=== PATIENT | female | born 1990 | race Caucasian/White ===

== ENCOUNTER 2016-07-13 07:52 | Inpatient (IN) | payer OTHER ==
[~2016-07-13] VITALS: Ht 162.6 cm; Wt 104.3 kg
[~2016-07-13 07:52] MED LIST: Docusate Sodium PO; Ibuprofen PO; Oxycodone/Acetaminophen PO
[2016-07-13 08:56] LABS: Mean Corpuscular Hemoglobin 27.8 pg (27.0-35.0); Mean Corpuscular Volume 80.5 fL (81-100)
[2016-07-13] MEDS ORDERED: Carboprost 250 mCg/mL Inj IM PRN (11:30)
[2016-07-13] MEDS ORDERED: Oxytocin 10 Unit/mL Inj IM PRN (11:30)
[2016-07-13] MEDS ORDERED: Sodium Chloride LOK Flush 10 mL Syringe IVFLUSH PRN (11:30)
[2016-07-13] MEDS ORDERED: Methylergonovine 0.2 mg/mL Inj IM PRN (11:30)
[2016-07-13] MEDS ORDERED: Oxytocin 30 Units/500 mL LR 30 UNITS in IV Premix 1 EACH IV PRN ×2 (11:30→14:05)
[2016-07-13] MEDS ORDERED: Hemorrhage Kit, Post Partum XX ONE (11:30)
--- NOTE | 2016-07-13 13:14 | DRSVH ---
PROCEDURE: US OB FOLLOW UP PER FETUS LIMITED INDICATIONS: WEIGHT, MILTON OUTSIDE/PRIOR DATING DATA: Last menstrual period (LMP): 10/04/15. LMP-based estimated date of delivery (CHARLOTTE): 07/10/16. First dating scan (date and location): 12/07/15. Estimated date of delivery (CHARLOTTE) from first dating scan: 07/10/16. TECHNIQUE: Real-time scanning was performed of the fetus, with image documentation and biometric measurements. COMPARISON: [facility] Ul[facility]ound, US, US OB [facility]EEVAL [facility]COMP [facility]ATMY LTD, 05/25/2016, 7:58. FINDINGS: General: A single living intrauterine gestation is present. Presentation: Vertex Placenta: Placental position is anterior, without previa. [facility] Ul[facility]ound Procedure Report Summary Fetus Summary Estimated Gestational Age from first dating scan: 40 weeks, 3 days Estimated Gestational Age from present scan: 38 weeks, 1 day Estimated Weight (EFW): 4083 g EFW percentile rank: 80 % Heart Rate: 144 beats permitted Findings(Amniotic Sac) Amniotic Fluid Index: 0.20 cm Biometry BiometryGroup Biparietal Diameter (Mean): 9.44 cm Gestational Age (BPD): 38 weeks, 3 days Head Circumference (Mean): 33.57 cm Gestational Age (HC): 38 weeks, 3 days Abdominal Circumference (Mean): 38.30 cm Gestational Age (AC): Greater than 41 weeks. Femur Length (Mean): 7.34 cm Gestational Age (FL): 37 weeks, 4 days Pelvis and Uterus Cervix Length: Well-seen. Measurement variability in biometric dating: +/- 10 days from 12-20 weeks gestation, +/- 2 weeks from 20-30 weeks gestation, +/- 3 weeks at 30 weeks gestation or more. Other: Not applicable. IMPRESSION: Normal interval growth with estimated weight is 80th percentile. Oligohydramnios present with the MILTON measuring 2 cm. Doretha Ambriz RN given results by the plate roller 1030 hrs. 07/13/2016. Dictated by: Mariano Bowens RRA Interpreted: Anika Holloway MD on 07/13/2016 at 13:11 Transcribed by: CASSIE on 07/13/2016 at 13:14 Approved by: Anika Holloway MD, PhD on 07/13/2016 at 15:19
[2016-07-13] MEDS ORDERED: Lactated Ringer's 1,000 ML IV SCH ×2 (14:04→19:10)
[2016-07-13] MEDS ORDERED: Misoprostol 25 mCg/0.25 Tablet VAGINAL SCH (14:05)
[2016-07-13] MEDS ORDERED: Oxytocin 10 Unit/mL Inj ONE (14:14)
[2016-07-13] MEDS ORDERED: Propofol 10,000 mCg/mL 20 mL Inj ONE (14:14)
[2016-07-13] MEDS ORDERED: Esmolol 10,000 mCg/mL 10 mL Inj ONE (14:14)
[2016-07-13] MEDS ORDERED: MeTOProlol 1 mg/mL 5 mL Inj ONE (14:14)
[2016-07-13] MEDS ORDERED: Ondansetron 2 mg/mL 2 mL Inj ONE (14:14)
[2016-07-13] MEDS ORDERED: Phenylephrine/NS-PF 100 mCg/mL 5 mL Syringe IVPUSH ONE (14:14)
--- NOTE | 2016-07-13 14:22 | PCM.HPOB ---
Subjective Date of Service: July 13, 2016 Referring Provider: Admitting Physician: Noah Portillo MD Primary Care Physician: Noah Portillo MD Attending Physician: Peyton Aj MD Chief Complaint Oligohydramnios, labile blood pressures at 40+3 weeks GA History of Present History of Present Illness Patient is a very pleasant 26-year-old with an EDC of 07/10/2016 who has been followed throughout her by Dr. Noah Hercules. He is out of the office and in [place] for vacation currently. She was brought in today for a nonstress test but was noted to be mildly hypertensive initially with blood pressures ranging from 131/75-144/90 . heart rate baseline was in the 140s and there were some variable decelerations dropping down 20 beats and lasting 30- 45 seconds. heart rate variability was good. Patient also reported to nursing staff that she felt quite poorly over the weekend and had had at least one episode of lightheadedness. She has mild puffiness to the hands and the feet and denies any history of hypertension outside of . PIH labs were drawn and ultrasound was done which showed estimated weight of 4080 g and oligohydramnios with MILTON of 2 cm. Patient was admitted and consent for induction of labor was reviewed with her and signed. She is aware of the risks, benefits, and alternatives and would like to proceed with this. She has had induction with her a couple of her previous pregnancies and is familiar with this process. Labs were reviewed and hemoglobin was 10.8, hematocrit 31.3, platelet count 265. Her protein and creatinine ratio was normal at 0.1. ALT was 8 and AST 11. Serum uric acid was normal at 4.3. Creatinine was 0.43, and BUN was 8. Patient has not had PIH with any of her previous pregnancies. She does feel like this baby is bigger than her last one , and weight gain in the has been 59 pounds. She is O+, rubella immune, RPR was nonreactive. Hepatitis B surface antigen was negative, hepatitis C was negative, HIV was negative. Her diabetic screen at 31 weeks was 98. GC chlamydia was negative and GBS is negative. HSV types 1 and 2 were both negative. A1c was 5.2% and TSH was normal at 0.99. Quad screen was negative and Pap smear was normal. OB History: (5), Para, Term (3), (0), Living (3) Obstetrical Complications: None Past Medical History Obstetrical History: 1. Her first baby was born September 2007 at 41 weeks gestation following 20 hours of labor. She did have an epidural and had normal vaginal delivery of a baby girl born weighing 8 pounds and 14 ounces. Both mom and baby were healthy without any complications. " [place]" 2. Her second baby was born in May 2009 at 39 weeks gestation following 7 hours of labor. She had an epidural and normal vaginal delivery of a baby girl weighing 7 lbs. 9 oz. Both mom and baby are healthy with no complications. " Gracie" 3. Her third baby was born in November 2011 at 40-1/2 weeks gestational age with 5 hours of labor. She had an epidural and had spontaneous vaginal delivery of a live born male weighing 8 lbs. 14 oz. Both mom and baby are healthy with no complications." [place]" 4. Her fourth in January 2014 was a tubal and she had surgical removal of the left fallopian tube. 5. This is her fifth and current . Gynecologic History: She has not had any history of abnormal Pap smears or STDs. Medical History: She is generally in good health and has not ever been in the hospital apart from obstetrically related reasons. Surgical History: She had previous left fallopian tube removed January 2014 because of an ectopic . Hx Tobacco Use: No Hx Alcohol Use: No Hx Substance Use: No Past Family History Family History Family history is negative for any breast, colon, or ovarian cancers and there is no history of diabetes. Living Arrangement: with Family Genetic Screening/Counseling Genetic Screening/Counseling: Negative Baby father-had child w defect: No Review of Systems Constitutional: Y: Dizziness Eyes: Denies: Blurred Vision, Double Vision ENT: Denies: Dental Problems, Nasal Congestion, Nose Discharge, Throat Pain Cardiovascular: Denies: Chest Pain, Palpitations Respiratory: Denies: Cough Gastrointestinal: Denies: Abdominal Pain, Constipation, Diarrhea, Heartburn, Nausea, Vomiting Genitourinary: Denies: Dysuria Musculoskeletal: Denies: Redness, Swelling Skin/Breasts: Denies: Jaundice, Lesions Skin: Denies: Bruising Neurological: Denies: Change in Speech Psychologic: Reports: Anxious, Denies: Depression Hematologic: Denies: Adenopathy Medications Home medications Patient is only on vitamins and has no other regular medications Allergy Coded Allergies: No Known Allergies (Verified , 10/17/07) Exam Vital Signs 131/75, heart rate 83, temperature 36.7 Constitutional: Well-developed, Well-nourished HEENT: PERRLA, EOMI, Mucous Membr Moist/Percy Lungs: Clear to Auscultation, Normal Air Movement Heart: Regular Rate/Rhythm, Normal S1, Normal S2 Abdomen: Gravid, Normal bowel sounds, Soft, No tenderness, No hepatosplenomegaly Lymphatic: Normal: Neck Palpation of Nodes Extremities: Pulses Palpable x4, Warm, No Edema Neurological/Psychiatric: Alert, Oriented X3, Cooperative, No Acute Distress Neuro: Grossly Neurologically Intact Labs/Diagnostics Labs Blood type is O+, with no abnormal antibodies. Pap test was normal. Rubella is immune, RPR nonreactive, urine culture was negative, hep B surface antigen negative, HIV negative, hepatitis C was negative, HSV types 1 and 2 were both negative. GC chlamydia was negative. A1c 5.2%, and TSH 0.99. GTT was 98. GBS was negative. Maternal Blood Type: O Hx Rho(D) Immune Globulin: No Antibody Screen: negative Group B Strep Results: Negative Previous with GBS: No Rubella: Immune Lab History: Negative for: Hx Gonorrhea, Hx HIV, Hx Herpes, Hx Syphilis OB Intrapartum Assessment/Plan Assessment 26-year-old who has been cared for in her by Dr. Hercules with an EDC of 07/10/2016 who is presenting at 40 weeks +3 days with oligohydramnios and MILTON of 2 cm. Estimated weight is 9 pounds. Cervix is 1 cm dilated, fingertip os, vertex at -3 station and 50% effaced. Consent for induction of labor has been signed with the risks, benefits, and alternatives to this reviewed with patient and her spouse. She will start with Cytotec induction and proceed from there, depending on her response. heart rate is reactive with baseline in the 140s and good beat to beat variability. Membranes are intact and there is no bloody show. GBS is negative. Problems: (1) Post term over 40 weeks Status: Acute ICD Code: O48.0 (2) Oligohydramnios without rupture of membranes Qualifiers: Fetus number: single or unspecified fetus Trimester: third trimester Qualified Code: O41.03X0 - Oligohydramnios, third trimester, not applicable or unspecified Status: Acute ICD Code: O41.00X0 Pain Evaluation: Adequate Pain Control Peyton Aj MD July 13, 2016 14:22
[2016-07-13] MEDS ORDERED: fentaNYL-PF 50 mCg/mL 2 mL Inj ONE (17:55)
[2016-07-13] MEDS ORDERED: fentaNYL-PF 50 mCg/mL 2 mL Inj IVPUSH PRN ×2 (18:25→19:10)
[2016-07-13] MEDS ORDERED: Atropine 1 mg/10 mL (Code) Syringe IVPUSH PRN (19:10)
[2016-07-13] MEDS ORDERED: fentaNYL 2 mCg/mL-Bupiv 0.125% 100 ML EPIDURAL SCH (19:10)
[2016-07-13] MEDS ORDERED: Ondansetron 2 mg/mL 2 mL Inj IVPUSH PRN (19:10)
[2016-07-13] MEDS ORDERED: Lactated Ringer's 500 ML IV ONE (19:10)
[2016-07-13] MEDS ORDERED: EPHEDrine Sulfate 50 mg/mL Inj IVPUSH PRN (19:10)
--- NOTE | 2016-07-13 19:10 | PCM.HPANE ---
Patient Data Date of Service: July 13, 2016 Surgeon Admitting Provider:Noah Portillo MD Attending Provider:Noah Portillo MD Primary Care Physician:Noah Portillo MD Other Provider:Ron Martinez Anesthesia Reason for Visit Induction INDUCTION Ht/WT & BMI Height (Feet): 5 Weight (Kilograms): 104 Body Mass Index Allergies Coded Allergies: No Known Allergies (Verified , 10/17/07) Past Anesthesia History Anesthesia History: Positive for:: Anesthesia Reactions (prior epidurals were partially effective - endorsed numbness but c/o significant pain), Denies:: Fam Anesthesia Reaction, Fam Malignant Hypertherm, Malignant Hyperthermia Diabetes History Hx Diabetes?: No MRSA MRSA: No Medications Hypertension Medication: No Home Meds Incl Beta Lisbeth: No Active Scripts [Ibuprofen] (Motrin)600 MG TABLET No Conflict [id number] Mg PO Q6H PRN For Pain # 80 TABLET Prov:Carlos Alva MD 03/13/14 [Oxycodone/Acetaminophen] (Percocet 5-325)1 TAB TABLET No Conflict Check1-2 Tab PO Q4H PRN For Pain #80 TABLET Prov:Carlos Alva MD 03/13/14 [Docusate Sodium] (Colace)100 MG CAPSULE No Conflict [id number] Mg PO BID PRN For Constipation #60 CAPSULE Prov:Carlos Alva MD 03/13/14 History History of ENT Problems?: No HEENT History: Denies:: Abnormal Airway Cataracts Difficult Intubation Dysphagia Glaucoma Hearing Problem Sinus Problem TMJ Denture Type: None Teeth Condition: Within Normal Limits Hx of Heart Problems?: No Cardiovascular History: Denies:: Chest Pain Congestive Heart Failure Hypertension Hx of Respiratory Problem?: No Respiratory History: Denies:: Tuberculosis Hx Neurologic Problems?: No Neurological History: Denies:: CVA Seizures TIA Hx of GI Problems?: No Gastrointestinal History: Denies:: Gastroesphageal Reflux Hx of Problems?: No Female Hx: Positive for:: Currently Denies:: Endometriosis Pelvic Inflammatory Problems with Breasts? Hx Musculoskeletal Problems?: No Hx of Psycho/Social Problems?: Yes Psycho Social History: Positive for:: Anxiety Denies:: Suicide Attempt Hx Surgeries?: Yes (oral surgery 12 years ago, 3 vaginal births) Hx Any Other Health Problems?: No Other History: Positive for:: Hospitalization Denies:: Cancer Endocrine Disease Thyroid Disease History Blood Transfusions: Denies:: Blood Transfuse Reaction Blood Transfusions Hx Diabetes: No Hx Alcohol Use: NoHx Substance Use: No Smoking Status: Never Smoker Have You Smoked inLast 12 mo: Yes (stress smoker. ) Stop/Bang Treated for Sleep Apnea?: No Do You Have a CPAP Machine?: No S-Snoring: Do You Snore Loudly: No T-Tired: feel tired, fatigued: No O-Obsered: Observed not breath: No P-Blood Pressure: treated: No B- Body Mass Index > 35 kg/m2: Yes A- Age over 50: No N- Neck Large Circumference: No G- Gender Male: No ELISABET Risk Assessment: Low Risk, <3 Yes Risk Assessment Category Category 1A: Patient has history of documented sleep apnea, and HAS NOT received any narcotic, sedative or anesthesia administration during this stay. Category 1B: Patient has history of documented sleep apnea, and HAS received any narcotic , sedative or anesthesia administration during this stay Category 2: Patient has SUSPECTED Obstructive Sleep Apnea, and HAS received any narcotic , sedative or anesthesia administration during this stay. Category 3: Patient has SUSPECTED Obstructive Sleep Apnea and HAS NOT received narcotic, sedative or anesthesia administration during this stay. Category 4: Outpatient in Procedural Areas with known sleep apnea or who screen positive for High Risk via the STOP/BANG questionnaire. Exam Exam General Appearance: Alert, Oriented X3, Cooperative, No Acute Distress HEENT/AIRWAY: MP 2, Neck Movement (from), Mouth Opening (3), Other (tmd3) Lungs: Clear to Auscultation, Normal Air Movement Heart: Exam Unremarkable, Regular Rate/Rhythm, Normal S1, Normal S2, No Murmurs /Rubs/Gallops Meds/Labs/Diagnostics Admission Meds Current Medications Lactated Ringer's (Lr) 1,000 ml @ 125 mls/hr Q8H IV Last administered on 18:07; Start 07/13/16 at 14:04 Misoprostol (Cytotec) 25 mcg Q4H VAGINAL Last administered on 07/13/16 14:23; Start 07/13/16 at 14:05 Fentanyl Citrate (Sublimaze Inj) 100 mcg STK-MED ONCE .ROUTE Last administered on 07/13/16 18:01; Start 07/13/16 at 17:55; Stop 07/13/16 at 17:58; Status DC Labs Test 07/13/16 08:40 White Blood Count 7.3th/mm3 (3.8-10.1) Red Blood Count 3.89mil/mm3 (3.90-5.20) Hemoglobin 10.8g/dL (12.0-15.6) Hematocrit 31.3% (35.0-46.0) Mean Corpuscular Volume 80.5fL (81-100) Mean Corpuscular Hemoglobin 27.8pg (27.0-35.0) Mean Corpuscular Hemoglobin Concent 34.5% (32.0-37.0) Red Cell Distribution Width 14.3% (12.3-15.4) Platelet Count 265bil/L (150-400) Hematology Comments Urine Random Creatinine 136mg/dL (16-392) Urine Random Total Protein 13mg/dL (0-15) Urine Protein/Creatinine Ratio 0.10 (0-200) Blood Urea Nitrogen 8mg/dL (6-20) Creatinine 0.43mg/dL (0.57-1.00) Uric Acid 4.3mg/dL (2.6-7.2) Aspartate Amino Transf (AST/SGOT) 11U/L (0-50) Alanine Aminotransferase (ALT/SGPT) 8U/L (0-32) Plan Impression Patient chart reviewed, patient interviewed and anesthestic plan with risks, benefits, and alternatives discussed, and informed consent obtained. NPO per Anesth. Guidelines: No ASA Physical Status: ASA2 Mod Systemic Disease Anesthetic Plan: Epidural Bene/Risks/Altern/Consents: Yes HP Complete Prior to Induction: Yes Lebron Carranza MD July 13, 2016 19:10
[2016-07-13] MEDS: Lactated Ringer's 1,000 ML IV PRN ×2 (19:30→20:38)
[2016-07-14] MEDS ORDERED: Sodium Chloride LOK Flush 10 mL Syringe IVFLUSH SCH (00:30)
[2016-07-14] MEDS: Lactated Ringer's 1,000 ML IV PRN (00:50)
[2016-07-14] MEDS ORDERED: SODIUM CHLORIDE 0.9% IV ONE (01:30)
[2016-07-14] MEDS ORDERED: GENTAMICIN IV ONE (01:30)
[2016-07-14] MEDS ORDERED: Ampicillin Inj 2,000 MG in 0.9% Sodium Chloride 100 ML IV SCH (01:44)
[2016-07-14] MEDS ORDERED: Sodium Citrate-Citric Acid 15 mL Solution ONE (01:47)
[2016-07-14] MEDS ORDERED: Acetaminophen IV 1,000 MG in IV Premix 1 EACH IV ONE (01:50)
--- NOTE | 2016-07-14 01:57 | PCM.PNOBIP ---
Subjective Date of Service July 14, 2016 Delivery plan: Primary [facility] Delivery Visit History Patient had SROM at 1726 hrs on 07/13/2016 and was song every 1 to 2 minutes. She was quite uncomfortable over the next hour or so, and was checked and found to be 5 cm, 100% effaced and vertex at -2 station. She requested adn epidural and this was placed and has worked well for patient. She was checked one hour after the epidural and was 6 cm, but her cervix was starting to swell, especially anteriorly. Her position was changed multiple times, and IV fluids were given. She was 7 cm dilated just before 10pm, but her cervix was also noted to be much more swollen, and the baby's head is asynclitic and some caput was noted. Over the last 2 to 3 hours, the baby has developed deep variable decels ( lowest to 90, most to 100 to 110) and tachycardia, with baseline to the 175 to 180. Variability is still moderated, she has bloody show. Vaginal exam showed her cervix to still be 7.5 cm, and she is thickly swollen anteriorly , with asnyclitic vertex presentation. Maternal temp is 38 degrees. Maternal HR 94 to 114 range. Options reviewed with mom and her , and she would like to proceed with a primary c/section delivery. OB has also reviewed the strip, and she has been 7.5 cm dilated for 4 hours. ampicillin and gentamycin have been ordered and we will be going back for c/section for nonreassuring FHR and FTP in labor with a macrosomic and asynclitic head. Maternal Date/Time of ROM: 07/13/2016 17:26 hrs Pain Management: Epidural Gastrointestinal: No N/V Group B Strep Results: Negative Rubella: Immune Blood Type: O RH Type: Positive Labs Laboratory Tests 07/13/16 08:40: White Blood Count 7.3, Red Blood Count 3.89, Hemoglobin 10.8, Hematocrit 31.3, Mean Corpuscular Volume 80.5, Mean Corpuscular Hemoglobin 27.8, Mean Corpuscular Hemoglobin Concent 34.5, Red Cell Distribution Width 14.3, Platelet Count 265, Hematology Comments Exam Vital Signs Vital Signs Contraction frequency in minutes: MVUs: Vital Signs: VS reviewed, concerns are (maternal temp 38 degrees, maternla HR 92 to 114) Heart Tracings Heart Tones Baseline 170 to 180 bpm Heart Rate Variability: Moderate Heart Rate Accelleration: Present Heart Rate Deceleration: Present Heart Rate Category: II Tocometry/IUPC Contraction frequency in minutes: MVUs: Sterile Vaginal Exam Cervical Dilation: 7 cms Cervical Effacement: 100 % Station: -2 Exam Lungs: Clear to Auscultation, Normal Air Movement Heart: Regular Rate/Rhythm, Normal S1, Normal S2 General: Alert, Oriented X3, Cooperative OB Intrapartum Assessment/Plan Assessment 26 year old at 40 +4 weeks, with nonreassuring FHR , maternal temp 38 degrees, and FTP in labor past 7.5 cm x 4 hours. Plan for c/section. Problems: (1) Post term over 40 weeks Status: Acute ICD Code: O48.0 (2) Oligohydramnios without rupture of membranes Qualifiers: Fetus number: single or unspecified fetus Trimester: third trimester Qualified Code: O41.03X0 - Oligohydramnios, third trimester, not applicable or unspecified Status: Acute ICD Code: O41.00X0 (3) Non-reassuring heart rate or rhythm affecting management of fetus Status: Acute ICD Code: [id number] (4) Failure to progress in first stage of labor Status: Acute ICD Code: [id number] Intrapartum plan: Recommend delivery Pain Evaluation: Adequate Pain Control Intrapartum Antibiotics: Ampicillin, Gentamicin Peyton Aj MD July 14, 2016 01:57
[2016-07-14] MEDS ORDERED: Clindamycin Inj 900 MG in IV Premix 1 EACH IV STA (02:11)
[2016-07-14] MEDS ORDERED: MetoCLOpramide 5 mg/mL 2 mL Inj IVPUSH PRN (02:40)
[2016-07-14] MEDS ORDERED: Phenylephrine/NS-PF 100 mCg/mL 5 mL Syringe IVPUSH PRN (02:40)
[2016-07-14] MEDS ORDERED: fentaNYL-PF 50 mCg/mL 2 mL Inj IVPUSH PRN (02:40)
[2016-07-14] MEDS ORDERED: EPHEDrine Sulfate 50 mg/mL Inj IVPUSH PRN (02:40)
[2016-07-14] MEDS ORDERED: Ondansetron 2 mg/mL 2 mL Inj IVPUSH PRN (02:40)
[2016-07-14] MEDS ORDERED: Atropine 0.4 mg/mL Inj IV PRN (02:40)
[2016-07-14] MEDS ORDERED: Lactated Ringer's 1,000 ML IV SCH (04:23)
[2016-07-14] MEDS ORDERED: LANOlin HPA 7 Gm Ointment TOPICAL PRN (04:25)
[2016-07-14] MEDS ORDERED: Carboprost 250 mCg/mL Inj IM PRN (04:25)
[2016-07-14] MEDS ORDERED: Sodium Chloride LOK Flush 10 mL Syringe IVFLUSH PRN (04:25)
[2016-07-14] MEDS ORDERED: Methylergonovine 0.2 mg/mL Inj IM PRN (04:25)
[2016-07-14] MEDS ORDERED: Oxytocin 30 Units/500 mL LR 30 UNITS in IV Premix 1 EACH IV PRN (04:25)
[2016-07-14] MEDS ORDERED: Acetaminophen IV 1,000 MG in IV Premix 1 EACH IV PRN (04:25)
[2016-07-14] MEDS ORDERED: Oxytocin 10 Unit/mL Inj IM PRN (04:25)
[2016-07-14] MEDS ORDERED: diphenhydrAMINE 50 mg Capsule PO PRN (04:25)
[2016-07-14] MEDS ORDERED: Hemorrhage Kit, Post Partum XX ONE (04:25)
[2016-07-14] MEDS ORDERED: Clindamycin Inj 900 MG in IV Premix 1 EACH IV SCH (04:43)
[2016-07-14] MEDS ORDERED: Albumin 25% 50 GM in IV Premix 1 EACH IV ONE (04:45)
[2016-07-14] MEDS ORDERED: ALBUMIN IV STA ×2 (04:49→06:18)
[2016-07-14] MEDS ORDERED: 0.9% Sodium Chloride 250 ML IV SCH (04:50)
[2016-07-14 05:01] LABS: BASOPHILS % (AUTO) 0.1 % (0-3); EOSINOPHILS % (AUTO) 0 % (0-5); MONOCYTES % (AUTO) 9.4 % (4-12); Mean Corpuscular Volume 81.9 fL (81-100); NEUTROPHILS % (AUTO) 85.9 % (40-74); Platelet Count 273 bil/L (150-400)
[2016-07-14] MEDS ORDERED: diphenhydrAMINE 25 mg Capsule PO ONE (06:05)
--- NOTE | 2016-07-14 10:12 | OP ---
[address] [address] OPERATIVE REPORT PATIENT: STEVE MAURICE : 1990 MR#: [id number] ADMIT: 07/13/2016 JOB ID: [id number] DATE OF SURGERY: 07/14/2016 PREOPERATIVE DIAGNOSIS(ES): 1. Intrauterine at 40 weeks and four days. 2. Oligohydramnios. 3. Nonreassuring heart tones remote from delivery. 4. Arrest of dilatation. 5. Chorioamnionitis. POSTOPERATIVE DIAGNOSIS(ES): 1. Intrauterine at 40 weeks and four days. 2. Oligohydramnios. 3. Nonreassuring heart tones remote from delivery. 4. Arrest of dilatation. 5. Chorioamnionitis. 6. Status post primary section. 7. hemorrhage. SURGEON: Lima Rodríguez M.D. ATTENDANT LODGING FACILITIES: Peyton Aj M.D. [employer] Superintendent was required for retraction, exposure and safe delivery of the infant and safe completion of the procedure. PROCEDURE: Primary section via Pfannenstiel skin incision and low transverse uterine incision. COMPLICATIONS: hemorrhage. BLOOD PRODUCT ADMINISTRATION: Two units of packed red blood cells being administered in recovery. ESTIMATED BLOOD LOSS: 1500 mL. IV FLUIDS: 2000 mL. Vasopressor was given and albumin was given postop in the recovery. ANESTHESIA: Epidural. SPECIMENS REMOVED: Placenta was sent to Pathology and cultures collected. FINDINGS: Male infant delivered in cephalic presentation with no nuchal cord. Apgars 3 at one minute, 7 at five minutes and 9 at 10 minutes. Weight 3841 g, equivalent to 8 pounds 7 ounces. Thick meconium stained amniotic fluid. Normal uterus, tubes and ovaries beside the serosa of the uterus noted to be edematous. Some omentum noted to be adherent to the anterior lower parietal peritoneum. INDICATION: This is a 26-year-old 5, para 3-0-1-3 was admitted at 40 weeks and 3 days gestation with oligohydramnios and a borderline blood pressure. The patient is Dr. Portillo's patient but Dr. Aj was distance education director provider and she admitted her for induction of labor that was started with Cytotec as cervix was 1 cm dilated, finger tip and -3 station and 50% effaced. The patient had spontaneous rupture of membranes at 1526 on July 13, 2016 and she continued to contract every 1-2 minutes. On re-evaluation 1 hour later, she was found to be 5 cm dilated, 100% effaced and -2 station. The patient received epidural and progressed in dilatation to 7.5 dilatation at about 2200 hours. Then the cervix remained at 7.5 cm for the following four hours. tachycardia was noted with heart tones baseline was up to 170 and then to 180s. Variable decelerations were noted down to the 90s and 110. Intrauterine resuscitation was performed. IV hydration, oxygen, position change with persistent heart tones, tachycardia and viable heart tone decelerations. For induction, the patient received only one dose of misoprostol. Then she started to contract regularly. When contractions spaced out. Pitocin was started then was turned off secondary to non tolerance with heart tones as described above. Maternal fever was noted with temperature of 38, maternal white cells count was 24. Ampicillin and gentamicin were started. The cervix remained at 7.5 cm with the current heart tones being in category 2, not responding to intrauterine resuscitation. The patient was offered a primary section as the delivery was remote with no significant cervical record changer the past four hours and chorioamnionitis was treated with ampicillin and gentamicin and clindamycin was added. Preop risks benefits and alternatives of section were discussed with the patient in details, informed consent was signed. The patient desires to proceed with a section. Risks of section include, and not limited to, risk of infection, bleeding, risk of transfusion, risk of injury to other organs, including and not limited to, bowel, bladder, ureters, nerves and major blood vessels. Risks of anesthesia were reviewed with the patient in details. All questions were answered. PROCEDURE: After informed consent was obtained, the patient was taken to the operation room. She was placed under adequate epidural anesthesia. The patient was placed in supine position with left lateral tilt after pelvic preparation. Then, the patient was prepped and draped in the usual sterile fashion for abdominal procedures. After confirmation of adequate anesthesia, a skin incision was made at the level of two finger breath above the symphysis pubis. The initial skin incision was carried down to the fascia with Bovie cautery. The initial fascial incision was made with a scalpel. The upper aspect of the fascial incision was grasped on either side of the midline and the fascia was dissected off the underlying rectus muscles with blunt and sharp dissection. Then, attention was turned to the inferior aspect of the fascial layer that was grasped on either side of the midline and the fascia was dissected off the underlying rectus muscles with blunt and sharp dissection. Then, the rectus muscles were in the midline and the peritoneum was identified and entered with blunt dissection. The peritoneal opening was then extended with sharp dissection under direct visualization and area cleared of the vascularity or adhesions. The peritoneal incision was further extended with gentle traction bilaterally. Bladder blade was placed. The bladder reflection was identified and the bladder flap was created with Metzenbaum scissors. The bladder blade was repositioned to protect the bladder and the uterine incision was made in the lower uterine segment with a scalpel and was extended bilaterally with curved digits and bilateral traction. The infant head was elevated easily out of the pelvis and was brought to the incision and delivered in occiput anterior position with assistance of moderate amount of fundal pressure. No nuchal cord was noted. Amniotic fluid was noted to be thick meconium stained fluid. The was not vigorous. Cord was immediately clamped and cut as per regulatory intern who was presented in the operating room prior to the delivery. Cord segment was collected for gases. Cord blood was collected for typing. Placenta was delivered spontaneously intact with three vessel cord and was sent to Pathology for further evaluation. Cultures were collected from the maternal and the side of the placenta. The uterus was exteriorized and cleared of any remaining clots and debris. The uterine incision was closed with 0-Vicryl in a running, interlocking fashion. A second imbricating layer of 0-Vicryl was placed. Hemostasis at the right corner of the incision was achieved with figure of eight stitch. The left corner of the incision hemostasis was achieved with three further figure of eight stitches. The posterior cul-de-sac was irrigated and cleared of any remaining clots and debris. The uterus was placed back into the abdominal cavity after evaluation of normal right tube and absent left tube secondary to salpingectomy for ectopic in the past. Both ovaries were normal. Minimal adhesions at the posterior side of the left ovary. The uterine incision was reexamined and hemostasis was ensured. Small superficial vessels at the serosal surface were noted. After applying pressure, the bleeding was controlled. FloSeal was applied to further ensure hemostasis. The subfascial layer was examined and hemostasis was ensured. Then, the uterine incision was re-examined and found to be hemostatic. The rectus muscles were approximated at the midline with three simple stitches of 2-0 chromic. The fascia was closed with 0-Vicryl in a running fashion. The subcutaneous layer was approximated with simple interrupted stitches of 2-0 chromic. The skin was closed with 4-0 Vicryl in subcuticular fashion on a Jonathan needle. Steri-Strips were applied. All instrument, needle, sponge counts were correct x2. At the end of the procedure, infant was admitted to the ICU and then was brought to the delivery room while the mother was recovering. The mother was noted to have postoperative hypotension with some tachycardia not responding to vasodepressors. Albumin was started IV as per anesthesiologist, Dr. Carranza's recommendation. The patient was counseled about risks, benefits and alternatives of blood transfusion. The patient desires a blood transfusion. Informed consent was signed. Will transfuse two units in the recovery room. Fundus is firm and minimal uterine or abdominal pain. Postop hemoglobin 8.5, dropped from 10.8. Anticipated actual hemoglobin is much lower as this is the post hemoglobin. Transfusion was recommended secondary to symptomatic anemia and acute blood loss. LARISSA
[2016-07-14] MEDS: oxyCODONE-Acetamin 5-325 mg Tablet PO PRN ×3 (13:55→23:18)
[2016-07-14] MEDS ORDERED: Morphine PF 1 mg/mL 10 mL Inj ONE (14:18)
[2016-07-14] MEDS ORDERED: Ketamine 10 mg/mL 20 mL Inj ONE (14:18)
[2016-07-14] MEDS: Ascorbic Acid 500 mg Tablet PO SCH (19:22)
[2016-07-14] MEDS: hydrOXYzine Pamoate 25 mg Capsule PO PRN (23:16)
[2016-07-15] MEDS ORDERED: SODIUM CHLORIDE 0.9% IV SCH (01:00)
[2016-07-15] MEDS ORDERED: GENTAMICIN IV SCH (01:00)
[2016-07-15] MEDS: oxyCODONE-Acetamin 5-325 mg Tablet PO PRN ×3 (05:44→14:28)
[2016-07-15] MEDS: hydrOXYzine Pamoate 25 mg Capsule PO PRN (05:48)
--- NOTE | 2016-07-15 05:54 | NUR ---
Shift summary pt c/o pain and percocet and vistaril given and has been effective. pt declined SCD's and Pulse ox check even after education, eventually pt did agree to scd's and pulse check, but was not very happy about it. pt ambulated to bthrm and tolerated fair to well. lochia light, fundus firm at 1 below the Umbili. bonding well with baby, FOB present.
[2016-07-15 06:00] LABS: Mean Corpuscular Hemoglobin 28.2 pg (27.0-35.0); Mean Corpuscular Volume 85.9 fL (81-100)
[2016-07-15] MEDS: Ascorbic Acid 500 mg Tablet PO SCH (08:14)
--- NOTE | 2016-07-15 10:14 | PCM.PNOBPP ---
Subjective Date of Service July 15, 2016 Post : Primary Ceserean Delivery Visit History Mom has been up and ambulating, and is the baby every 3 hours or so. Her dressing is still on, with no bleeding noted coming thru this She is tolerating her diet, vital signs have salvador stable. Pain control is adequate. She has moderate rubra lochia. she still has puffiness to the hands and feet and is pale. Hgb 7.8 this morning, and she has recieved 2 units PRBC yesterday. Both mom and babe are progressing toward d/c. Lochia: Normal Pain Management: PO pain meds, Good Pain Control Gastrointestinal: Good Appetite, No N/V, Passing Flatus Postop Activity: Ambulating in Room Only Group B Strep Results: Negative Rubella: Immune Blood Type: O RH Type: Positive Labs Laboratory Tests 07/13/16 08:40: Hematology Comments 07/14/16 04:42: Neutrophils (%) (Auto) 85.9, Lymphocytes (%) (Auto) 3.5, Monocytes (%) (Auto) 9.4, Eosinophils (%) (Auto) 0, Basophils (%) (Auto) 0.1 07/15/16 05:35: White Blood Count 17.6, Red Blood Count 2.77, Hemoglobin 7.8, Hematocrit 23.8, Mean Corpuscular Volume 85.9, Mean Corpuscular Hemoglobin 28.2, Mean Corpuscular Hemoglobin Concent 32.8, Red Cell Distribution Width 14.5, Platelet Count 242 Exam Vital Signs Vital Signs: VS reviewed, stable Exam Abdomen: Fundus firm, Abdomen soft : Voiding without difficulty Extremities: Normal pulses, No tenderness/swelling, No edema Lungs: Clear to Auscultation, Normal Air Movement Heart: Regular Rate/Rhythm, Normal S1, Normal S2 General: Alert, Oriented X3, Cooperative, No Acute Distress OB Post Assessment/Plan Assessment 26 year old G5 now P4 who came in at 40+3 weeks for NST and was found to have labile BP with oligohydramnios and MILTON 2cm. She received cytotec 25mcg x1 dose PV and went into labor with this. SROM for clear fluid was noted, and mom had epidural placed at 5cm. She never progressed past 7 to 7.5 cm, as baby developed tachy to 170 to 180, with deep variable decels, and thick meconium. She went onto primary c/section of LBM , and baby was limp and blue at ,with no respiratory efforts, although his heart rate was always good. Cord gasses showed him to be quite acidotic, and he responded well to IPPV assist x 4.5 minutes,followed by CPAP x 2 minutes. He has stabilized and done well since then. MOm is , but does have inverted nipples. They are both progressing toward d/c. Problems: (1) Post term over 40 weeks Status: Acute ICD Code: O48.0 (2) Oligohydramnios without rupture of membranes Qualifiers: Fetus number: single or unspecified fetus Trimester: third trimester Qualified Code: O41.03X0 - Oligohydramnios, third trimester, not applicable or unspecified Status: Acute ICD Code: O41.00X0 (3) Non-reassuring heart rate or rhythm affecting management of fetus Status: Acute (4) Failure to progress in first stage of labor Status: Acute ICD Code: [id number] Pain Evaluation: Adequate Pain Control Post plan: Continue routine post care, Discharge home tomorrow Peyton Aj MD July 15, 2016 10:14
[2016-07-16 05:45] LABS: BASOPHILS % (AUTO) 0.1 % (0-3); EOSINOPHILS % (AUTO) 2.5 % (0-5); MONOCYTES % (AUTO) 4.4 % (4-12); Mean Corpuscular Hemoglobin 28.4 pg (27.0-35.0); Mean Corpuscular Volume 87.3 fL (81-100); NEUTROPHILS % (AUTO) 79.4 % (40-74); Platelet Count 313 bil/L (150-400)
[2016-07-16] MEDS: Ascorbic Acid 500 mg Tablet PO SCH (07:52)
[2016-07-16] MEDS: oxyCODONE-Acetamin 5-325 mg Tablet PO PRN (10:19)
--- NOTE | 2016-07-16 10:39 | PCM.DIOB ---
Obstetrical Disch Instruction Date of Service: July 16, 2016 Dates of Hospitalization Date of Hospital Admission July 13, 2016 at 10:49 Providers Admitting Physician: Noah Portillo MD Primary Care Physician: Noah Portillo MD Attending Physician: oNah Portillo MD Discharge Diagnosis Discharge Diagnosis POD#2 S/P PCD, anemia, Problems: (1) Post term over 40 weeks Status: Acute ICD Code: O48.0 (2) Oligohydramnios without rupture of membranes Qualifiers: Fetus number: single or unspecified fetus Trimester: third trimester Qualified Code: O41.03X0 - Oligohydramnios, third trimester, not applicable or unspecified Status: Acute ICD Code: O41.00X0 (3) Non-reassuring heart rate or rhythm affecting management of fetus Status: Acute (4) Failure to progress in first stage of labor Status: Acute ICD Code: [id number] Diet Discharge Diet: No restrictions Activity Discharge Activity-General: Pelvic Rest for 6 weeks, No lifting >10 pounds for 4-6 weeks Dressing and Incisional Care Dressing Care: Keep dressing clean, dry & intact Hygiene: May shower Follow Up Plan Follow-up Provider (F9): Felix Hutchins MD Follow-up appointment: Weeks (2) Call your provider for: Fever or Chills, Shortness of breath, Heavy vaginal bleeding, Other (excessive pain not controlled with pain medications. abnormal wound discharge.) Carlos Alva MD July 16, 2016 10:39
[2016-07-16] MEDS ORDERED: IBUP-1827 PO (10:42)
[2016-07-16] MEDS ORDERED: FERR-74 PO (10:42)
[2016-07-16] MEDS ORDERED: Ascorbic Acid PO (10:42)
[2016-07-16] MEDS ORDERED: DOCU-41 PO (10:42)
[2016-07-16] MEDS ORDERED: OXYC1TAB24 PO (10:42)
[2016-07-16 11:40] VITALS: BP 117/59; PULSE 100; RESP 18
--- NOTE | 2016-07-16 16:59 | DIS ---
[address] [address] DISCHARGE SUMMARY PATIENT: STEVE MAURICE : 1990 MR#: [id number] ADMIT: 07/13/2016 JOB ID: [id number] DIS: 07/16/2016 DATE OF ADMISSION: 07/13/[address] Aj for induction of labor secondary to gestational hypertension and oligohydramnios at 40 weeks gestational age. Discharged on July 16, 2016. DISCHARGE DIAGNOSIS: Postoperative day number two, status post primary section for nonreassuring heart tracing, chorioamnionitis and arrest of dilation by Dr. Rdoríguez. For further details, please refer to the fully dictated notes. Patient had hemorrhage that was managed with 2 units of blood transfusion. Today at discharge patient had no complaints. Voiding, ambulating, tolerating p.o. intake. with no difficulties. Vital signs are 117/59 for blood pressure. Respirations are 18, pulse is 100, temperature 37.3 degrees centigrade. Heart is regular rate and rhythm. Positive S1, S2. Lungs clear to auscultation bilaterally. Abdomen firm. Uterine fundus palpated at 1 cm below the umbilicus. Incision is clean, dry, intact. Appropriate tenderness around the incision. Perineum: No active bleeding. Lower extremities: No calf tenderness appreciated bilaterally. H and H this morning is 8.3 and 25.5. Was 7.8 and 23.8 yesterday. Platelets 313. White blood count is 15.3 down from 17.6 yesterday, improving. DISCHARGE PLAN: Patient will be discharged home in a stable condition. Will follow up with Dr. Hutchins in the office in two weeks for incision check. Instructed to have nothing in the vagina for six weeks. No heavy lifting more than baby's weight. Instructed to call for fever, chills, severe abdominal pain uncontrolled, pain medication, heavy vaginal bleeding, abnormal wound discharge or any other concerning symptoms. DISCHARGE MEDICATIONS: 1. Percocet 5/325 one tablet every 4 hours as needed for severe pain. 2. Ibuprofen 600 mg every 6 hours as needed for moderate pain. 3. Colace 100 mg twice daily. 4. Ferrous sulfate 325 mg twice daily. 5. Vitamin C 500 mg twice daily. 6. Continue with daily vitamins. The patient understood the discharge instructions. She will comply with her discharge plan. LARISSA
--- NOTE | 2016-07-19 16:07 | PATH ---
SURGICAL PATHOLOGY Attending Physician:Lima Rodríguez CASE STATUS: Signed Out PATIENT NAME: STEVE MAURICE PID: [id number] : 1990 DATE COLLECTED:07/13/2016 00:00 SPECIMEN: Placenta CLINICAL HISTORY: CHORIOAMNIONITIS 1). PLACENTA FINAL DIAGNOSIS: Friedman placenta: Placenta parenchyma: Weight: 598 grams. Chorionic villus maturation is slightly less mature than for stated gestational age. Mild inter and intravillous fibrin is present. No villitis identified. Umbilical cord: Length: 15.8 cm. Attached 5.3 cm from the placental disc margin. Three vessels present. Funisitis is present. Membranes: Ruptured 3.5 cm from the placental disc margin. Chorioamnionitis present. ICD10: O41.1 GROSS DESCRIPTION: The specimen is received in formalin, labeled with the patient's name and consists of an intact placenta and includes placental disc (598 g, 21.2 x 17.4 x 2.5 cm), umbilical cord (length-15.8 cm, diameter-1.3 x 0.9 cm) and membranes. The membranes are ruptured 3.5 cm from the free edge of the placenta and are semi-translucent. The umbilical cord is attached 5.3 cm from the edge of the placenta and contains 3 vessels. The surface is smooth and shiny with no evidence of meconium. The maternal surface is dark maroon with normal cotyledon formation. The placental disc is spongy with no hematomas, infarcts, nodules, masses, or lesions. Section code: (A) edge of placenta with membranes, umbilical cord; (B-C, D, E) placenta, 3 full thickness sections. 07/15/16 ICD-9 CODES: CPT CODES: 1: 54468 Electronically Signed Out Shivani Stover MD [facility] Pathology [facility] [address], [place] [address] Technical component performed at [facility], [facility] [address], [place], [address]
== END 2016-07-16 12:11 | disposition home or self-care (01) | DRG 765 ==
LOC: FBCO 07:52 → FBC 10:49
PROVIDERS: ADMIT Family Medicine; ATTEND Family Medicine
PROC: 3E0P7GC Introduction of Other Therapeutic Substance into Female Reproductive, Via Natural or Artificial Opening (ICD-10-PCS; 2016-07-13)
PROC: 30233N1 Transfusion of Nonautologous Red Blood Cells into Peripheral Vein, Percutaneous Approach (ICD-10-PCS; 2016-07-14)
PROC: 10D00Z1 Extraction of Products of Conception, Low, Open Approach (ICD-10-PCS; principal; 2016-07-14 02:00)
DX: O41.03X0 Oligohydramnios, third trimester, not applicable or unspecified (principal); O41.1230 Chorioamnionitis, third trimester, not applicable or unspecified; O13.4 Gestational [pregnancy-induced] hypertension without significant proteinuria, complicating childbirth; O72.0 Third-stage hemorrhage; D62 Acute posthemorrhagic anemia; O76 Abnormality in fetal heart rate and rhythm complicating labor and delivery; O62.0 Primary inadequate contractions; Z3A.40 40 weeks gestation of pregnancy; Z37.0 Single live birth